=== PATIENT | male | born 1990 | race Hispanic/Latino ===

== ENCOUNTER 2019-11-19 08:06 | Inpatient (IN) | payer SELFPAY ==
[2019-11-19 09:06] LABS: Hemoglobin 13.3 g/dL (14.0-18.0); Mean Corpuscular HGB CONC 33.4 g/dL (32.0-36.0); Mean Corpuscular Hemoglobin 30.8 pg (27.0-31.0); Mean Corpuscular Volume 92.3 fL (78.0-98.0); Mean Platelet Volume 7.7 fL (7.4-10.4); Platelet Count 226 thou/uL (130-400); RBC Distribution Width 11.4 % (11.5-14.5); Red Blood Cell (RBC) Count 4.32 mill/uL (4.70-6.10)
[2019-11-19] MEDS ORDERED: Rocuronium Bromide 10 MG/ML (10ML VIAL) ONE (09:15)
[2019-11-19] MEDS ORDERED: Esmolol 100 MG/10 ML VIAL ONE ×2 (09:15→16:50)
[2019-11-19] MEDS ORDERED: PROPOFOL 200 MG/20 ML VIAL ONE (09:15)
[2019-11-19] MEDS ORDERED: Dexamethasone 20 MG/5 ML VIAL ONE (09:15)
[2019-11-19] MEDS ORDERED: Lidocaine 1% PF 5 ML VIAL ONE (09:15)
[2019-11-19] MEDS ORDERED: Ondansetron PF 4 MG/2 ML Vial ONE ×2 (09:15→09:39)
[2019-11-19 09:25] LABS: ALT (SGPT) 17 U/L (8-55); AST (SGOT) 12 U/L (5-34); Albumin 3.8 g/dL (3.5-5.0); Alkaline Phosphatase 76 U/L (40-110); Anion Gap 13 mmol/L (10-20); BUN (Urea Nitrogen) 18 mg/dL (8.9-20.6); Band 2 % (5-11); Bilirubin, Total 0.8 mg/dL (0.2-1.2); Calc. Creatinine Clearance 0 mL/min (70-130); Calcium 8.9 mg/dL (7.8-10.44); Carbon Dioxide 25 mmol/L (22-29); Chloride 106 mmol/L (98-107); Estimated GFR-MDRD Greater than 90; Globulin 3.3 g/dL (2.4-3.5); Glucose 97 mg/dL (70-105); Lymphocytes 7 % (21-51); MDiff Complete? YES; Monocytes 8 % (0-10); Neutrophil 82 % (42-75); Platelet Morphology Comment Appears Adequate; Potassium 3.5 mmol/L (3.5-5.1); Protein, Total 7.1 g/dL (6.0-8.3); Reactive Lymphocytes 1 % (0-10); Sodium 140 mmol/L (136-145); Vacuoles SLIGHT
[2019-11-19] MEDS ORDERED: Ketorolac Tromethamine 30 MG/ML VIAL ONE (09:39)
[2019-11-19] MEDS ORDERED: Morphine 4 MG/ML VIAL ONE (09:39)
[2019-11-19] MEDS ORDERED: Ampicillin/Sulbactam 3 GM in Sodium Chloride 0.9% 100 ML IVPB SCH (09:45)
--- NOTE | 2019-11-19 10:37 | CT ---
CT NECK WITH CONTRAST: Axial tomograms were obtained with IV enhancement with multiplanar reconstruction. INDICATION: Left neck swelling with mass. Left side dental pain. FINDINGS: There is a large mass with heterogeneous density and gas pockets consistent with abscess involving th e left sublingual and left submandibular region. This large abscess measures approximately 6.5 cm AP dimension x 4.3 cm width in the axial plane in the sublingual region. This appears to originate fro m periapical abscess involving a left maxillary third molar. There appears to be both lingual and bu ccal extension from this apparent periapical abscess. The lingual extension extends inferiorly into this large sublingual and submandibular abscess. There is associated edema indicating extension of inflammatory process into the left parapharyngeal s pace. There is edema in the region of the larynx involving the left aryepiglottic fold and vallecula . Edema in the left parapharyngeal space at the level of the epiglottis. There is extension of lucia a into the left retropharyngeal space in the hypopharynx. There is bilateral cervical chain adenopathy with numerous enlarged cervical chain lymph nodes bilate rally slightly more pronounced on the left. This sublingual and submandibular abscess involves and displaces the left submandibular gland. IMPRESSION: Large left sublingual and submandibular abscess involving and displacing the left submandibular gland . Origin is probably from a periapical abscess involving a left maxillary molar which exhibits both buccal and lingual extension at the site of this molar. The inferior extension leads into this large abscess. There is evidence of inflammatory extension into the left parapharyngeal space and retropharyngeal sp sri. Edema at the larynx involves the aryepiglottic fold and vallecula. Findings related to Dr. Ellis. CODE CR POS: [facility]
[2019-11-19] MEDS ORDERED: Iopamidol 370 76% 100 ML VIAL ONE (11:02)
[2019-11-19] MEDS ORDERED: Morphine 2 MG/ML SYRINGE SLOW IVP PRN (13:13)
[2019-11-19] MEDS ORDERED: Hydrocodone-Acetamin 15 ML UDCUP PO PRN (13:14)
[2019-11-19 13:17] VITALS: BMI 20.3
[2019-11-19] MEDS: D5 0.9% NS w/ 20 mEq KCl 1,000 ML IV SCH (13:50)
[2019-11-19] MEDS: Clindamycin/D5W 900 MG in Premix Bag 1 BAG IVPB SCH ×2 (13:52→21:21)
[2019-11-19] MEDS ORDERED: Bacitracin Zinc Ointment 30 gm TUBE ONE (14:41)
[2019-11-19] MEDS ORDERED: Lidocaine 1% w/Epinephrine 1:100K 20 ML VIAL ONE (14:41)
[2019-11-19] MEDS ORDERED: Chlorhexidine Gluconate 15 ML UDCUP SSP ONE (14:41)
[2019-11-19] MEDS ORDERED: Midazolam HCl 2 mg/2 ml Vial ONE (15:00)
[2019-11-19] MEDS ORDERED: Fentanyl 100 MCG/2 ML VIAL ONE (15:00)
[2019-11-19] MEDS ORDERED: HYDROmorphone 0.5 MG/0.5 ML SYRINGE ONE (15:01)
[2019-11-19] MEDS ORDERED: Lidocaine 2% Jelly 5 ML TUBE ONE (15:01)
[2019-11-19] MEDS ORDERED: Morphine 2 MG/ML SYRINGE ONE (15:03)
[2019-11-19] MEDS ORDERED: SUGAMMADEX SODIUM 200 MG/2 ML VIAL ONE (15:48)
[2019-11-19] MEDS: Chlorhexidine Gluconate 15 ML UDCUP SSP SCH ×2 (15:49→21:12)
[2019-11-19] MEDS ORDERED: Meperidine HCl/PF 25 MG/ML VIAL SLOW IVP PRN ×2 (16:30)
[2019-11-19] MEDS ORDERED: Ondansetron HCl/PF 4 MG/2 ML Vial IVP PRN (16:30)
[2019-11-19] MEDS ORDERED: Promethazine HCl 25 MG/ML VIAL IM PRN (16:30)
[2019-11-19] MEDS ORDERED: Promethazine HCl 25 MG/ML VIAL SLOW IVP PRN (16:30)
--- NOTE | 2019-11-19 16:47 | HP ---
ER consultation and admit H and P CHIEF COMPLAINT: Jaw pain and swelling as well as tooth pain. HISTORY OF PRESENT ILLNESS: This is a 29-year-old male with a 6-day history of left tooth pain and swelling. He went to the doctor on , who gave him Augmentin and Flagyl with no resolution of the swelling, presented to the ER today at [facility] with increased pain and swelling. No difficulty breathing. Some difficulty opening. PAST MEDICAL HISTORY: None. PAST SURGICAL HISTORY: None. SOCIAL HISTORY: The patient works in construction. He smokes occasionally. He has 1 beer every 1 to 2 weeks. MEDICATIONS: Medications at home are none. PHYSICAL EXAMINATION: VITAL SIGNS: Blood pressure 125/80, temperature 100, pulse 92, respirations 12, saturating 96% on room air. GENERAL: He is awake, alert, and oriented x3. He is in no acute distress. HEAD AND NECK: He does have a mild amount of 2-finger trismus, but I can get him to open fully. A large amount of left neck swelling and induration below the inferior border to about the mid neck. There is slight elevation of the left tongue and floor of mouth. He has a necrotic, tender to palpation tooth #18. He does have slight fullness and erythema of the left tonsillar pillar area, however, swelling. CHEST: Clear to auscultation bilaterally. HEART: Regular rate and rhythm. S1 and S2. ABDOMEN: Soft, nontender, and nondistended. Positive bowel sounds. EXTREMITIES: He has 4/4 strength to flexion and extension of all 4 proximal and distal extremities. NEUROLOGIC: Cranial nerves 2 through 10 are grossly intact. /GENITAL: Deferred. No complaints. LABORATORY DATA: The patient's white blood cell count is 20. CT scan of the face shows a large left submandibular abscess extending to parapharyngeal area, lateral pharyngeal area, and sublingual area secondary to necrotic tooth #18 with periapical abscess. ASSESSMENT: A 29-year-old male with left submandibular, parapharyngeal, and sublingual abscess secondary to necrotic tooth 18. PLAN: We will take the patient to operating room, extract tooth 18, and I and D left submandibular, parapharyngeal, and sublingual abscess. We will have the patient on clindamycin 900 mg IV q.8 hours. We will admit as inpatient. Job ID: [id number]
[2019-11-19] MEDS ORDERED: Ondansetron PF 4 MG/2 ML Vial SLOW IVP PRN (17:05)
[2019-11-19] MEDS: Ibuprofen 100 MG/5 ML UDCUP PO SCH ×2 (18:41→23:34)
[2019-11-20] MEDS: Ibuprofen 100 MG/5 ML UDCUP PO SCH ×4 (05:41→23:35)
[2019-11-20] MEDS: Clindamycin/D5W 900 MG in Premix Bag 1 BAG IVPB SCH ×3 (05:41→21:06)
[2019-11-20 05:51] LABS: Band 16 % (5-11); Hemoglobin 12.1 g/dL (14.0-18.0); Lymphocytes 10 % (21-51); MDiff Complete? YES; Mean Corpuscular HGB CONC 32.8 g/dL (32.0-36.0); Mean Corpuscular Hemoglobin 30.5 pg (27.0-31.0); Mean Platelet Volume 7.5 fL (7.4-10.4); Monocytes 4 % (0-10); Neutrophil 70 % (42-75); Platelet Count 195 thou/uL (130-400); Platelet Morphology Comment Appears Adequate; RBC Distribution Width 11.7 % (11.5-14.5); RBC Morphology Normal; Red Blood Cell (RBC) Count 3.95 mill/uL (4.70-6.10); White Blood Cell (WBC) Count 19.9 thou/uL (4.8-10.8)
[2019-11-20] MEDS: D5 0.9% NS w/ 20 mEq KCl 1,000 ML IV SCH ×2 (06:12→21:07)
[2019-11-20] MEDS: Chlorhexidine Gluconate 15 ML UDCUP SSP SCH ×3 (08:10→21:06)
--- NOTE | 2019-11-20 11:44 | PRG ---
DATE OF SERVICE: 11/20/2019 SUBJECTIVE: The patient is postoperative day #1, status post incision and drainage of left deep neck space abscess. The patient is doing well. His pain is well controlled, not requiring pain medicines. He is voiding, ambulating, tolerating p.o. OBJECTIVE: GENERAL: He is awake, alert, oriented x3, in no acute distress. VITAL SIGNS: T current is 97.9, T-max 98, pulse 81 , respiration 14, saturating 97% on room air. Blood pressure is 97/59. NECK: The patient's neck wound is clean, dry, and intact. There is a moderate amount of seropurulent drainage still draining. [place] drain is intact. Area is much softer and less fluctuant and erythema than yesterday. His oral opening is great. Extraction socket is clean, dry, and intact. LABORATORY DATA: White blood cell count is 19 today, down from 21. ASSESSMENT: The patient is doing well postoperative day one. PLAN: Would like to discontinue Hep-Lock IV. Continue IV antibiotics for the next 24 hours. We will discharge to my office in the morning 11/21/2019, where I will remove the drain and give patient outpatient antibiotic care. Job ID: [id number]
[2019-11-21 04:17] VITALS: TEMP 98.2
[2019-11-21] MEDS: Ibuprofen 100 MG/5 ML UDCUP PO SCH (05:33)
[2019-11-21] MEDS: Clindamycin/D5W 900 MG in Premix Bag 1 BAG IVPB SCH (05:33)
[2019-11-21 07:42] VITALS: BP 99/53
[2019-11-21] MEDS: Chlorhexidine Gluconate 15 ML UDCUP SSP SCH (07:51)
--- NOTE | 2019-11-21 09:45 | OP ---
DATE OF PROCEDURE: 11/19/2019 PREOPERATIVE DIAGNOSES: 1. Necrotic tooth #18. 2. Left submandibular, left sublingual, left parapharyngeal abscess. POSTOPERATIVE DIAGNOSES: 1. Necrotic tooth 18. 2. Left submandibular abscess. 3. Left sublingual abscess. 4. Left parapharyngeal abscess. PROCEDURE PERFORMED: Simple extraction of tooth 18. Incision and drainage, extraoral of left submandibular, left sublingual, and left parapharyngeal abscess. COMPLICATIONS: None. SPECIMENS: None. DRAINS: [place] drain placed in the left submandibular, sublingual, and parapharyngeal area. DISPOSITION: The patient was stable, extubated, transferred to postop recovery unit. ESTIMATED BLOOD LOSS: 50 mL. ANESTHESIA: General endotracheal anesthesia, oral tube. BRIEF PATIENT HISTORY AND PROCEDURE IN DETAIL: This is a 29-year-old male with a 5-day history of left tooth pain and swelling. The patient was placed on outpatient antibiotics, continued to get worse. The patient was found to have the above noted abscess on CT scan. The patient was prepped and draped in sterile fashion. An incision approximately 2 cm below the mid mandibular border was done to skin and subcutaneous tissue. Blunt dissection to the platysma, into the submandibular space. Sarika pus was noted, taken for culture. Blunt dissection then carried in the sublingual area and dissection into the parapharyngeal area, also contained sarika pus. The area was thoroughly irrigated. A [place] drain was placed. Intraorally, tooth #18 was removed with forceps, curette of the area, normal saline irrigation. Job ID: [id number]
== END 2019-11-21 08:05 | disposition home or self-care (01) | DRG 137 ==
LOC: ERS 08:06 → SURG A 11:05
PROVIDERS: ADMIT Dentist Oral and Maxillofacial Surgery; ATTEND Dentist Oral and Maxillofacial Surgery
PROC: 0CDXXZ0 Extraction of Lower Tooth, Single, External Approach (ICD-10-PCS; principal; 2019-11-19)
PROC: 0J910ZZ Drainage of Face Subcutaneous Tissue and Fascia, Open Approach (ICD-10-PCS; 2019-11-19)
DX: K12.2 Cellulitis and abscess of mouth (principal); J39.0 Retropharyngeal and parapharyngeal abscess; K08.89 Other specified disorders of teeth and supporting structures; F17.200 Nicotine dependence, unspecified, uncomplicated; K04.1 Necrosis of pulp; D72.829 Elevated white blood cell count, unspecified
CPT/HCPCS: 36415; 70491; 80053; 83605; 85007; 85025; 85027; 87040; 87070; 87077; 87205; 96361; 96365; 96375; J0295; J1100; J1170; J1885; J2001; J2250; J2270; J2405; J2704; J3010; J3480; J3490; Q9967